=== PATIENT | female | born 1940 | race Caucasian/White ===

== ENCOUNTER 2018-03-05 09:34 | Emergency (ER) | payer MEDICARE ==
[~2018-03-05] VITALS: Ht 162.6 cm; Wt 74.8 kg
[~2018-03-05 09:34] MED LIST: CARDIZEM CD300 MG PO; GABAPENTIN300 MG PO; HYDROCHLOROTHIA25 MG PO; LEVOXYL25 MCG PO; NEXIUM40 MG PO; SIMVASTATIN20 MG PO
[2018-03-05] MEDS ORDERED: NEXIUM20 MG ORAL (10:14)
[2018-03-05] MEDS ORDERED: MELOXICAM15 MG PO (10:14)
[2018-03-05] MEDS ORDERED: FOSAMAX70 MG ORAL (10:14)
[2018-03-05] MEDS ORDERED: PRAVASTATIN SOD20 M1 ORAL (10:14)
[2018-03-05] MEDS ORDERED: Dicyclomine HCl 10mg/5ml oral soln ORAL ONE (10:15)
--- NOTE | 2018-03-05 10:31 | Emergency Room Report ---
History of Present Illness General Chief Complaint: Diarrhea Source: Patient Present Illness HPI 77-year-old female presents to ED for evaluation of diarrhea. Has had diarrhea for the last 4 days. Multiple loose watery stools. Notes cramping pain, 4 out of 10, nonradiating. Denies fevers or chills. Denies chest pain or shortness of breath. Denies nausea or vomiting. Denies recent antibiotic use. Denies recent travel. States that this happens to her occasionally and she may need IV hydration. Patient states she otherwise feels fine. Denies any weakness. No other aggravating relieving factors. Denies any other associated symptoms Allergies: Coded Allergies: CEPHALEXIN (Verified Allergy, Mild, 08/30/10) NITROFURANTOIN (Verified Allergy, Unknown, 03/05/18) POVIDONE-IODINE (Verified Allergy, Unknown, 03/05/18) SOAP (Verified Allergy, Unknown, 03/05/18) Uncoded Allergies: SHELLFISH (Allergy, Unknown, 03/05/18) Patient History Past Medical History: GERD, other - RA Past Surgical History: none Pertinent Family History: none Social History: Denies: smoking, alcohol use, drug use Now: No Immunizations: UTD Reviewed Nursing Documentation: PMH: Agreed; PSxH: Agreed Nursing Documentation-PMH Past Medical History: No Stated History Hx Hypertension: Yes - rheumatoid arthritis, chronic back pain Hx Gastrointestinal Problems: Yes - GERD Review of Systems All Other Systems: negative except mentioned in HPI Physical Exam Vital Signs Date Time Temp Pulse Resp B/P (MAP) Pulse Ox O2 Delivery O2 Flow Rate FiO2 03/05/18 09:44 97.5 68 18 150/97 98 Room Air 97.5 Sp02 EP Interpretation: reviewed, normal General Appearance: no apparent distress, alert, GCS 15, non-toxic Head: normocephalic, atraumatic Eyes: bilateral eye normal inspection, bilateral eye PERRL ENT: hearing grossly normal, normal pharynx, no angioedema, normal voice Neck: full range of motion, supple/symm/no masses Respiratory: chest non-tender, lungs clear, normal breath sounds, speaking full sentences Cardiovascular #1: regular rate, rhythm, no edema Cardiovascular #2: 2+ carotid (R), 2+ carotid (L), 2+ radial (R), 2+ radial (L) , 2+ dorsalis pedis (R), 2+ dorsalis pedis (L) Gastrointestinal: normal bowel sounds, non tender, soft, non-distended, no guarding, no rebound Rectal: deferred Genitourinary: normal inspection, no CVA tenderness Musculoskeletal: back normal, gait/station normal, normal range of motion, non- tender Neurologic: alert, oriented x3, responsive, motor strength/tone normal, sensory intact, speech normal Psychiatric: judgement/insight normal, memory normal, mood/affect normal, no suicidal/homicidal ideation Reflexes: 3+ bicep (R), 3+ bicep (L), 3+ tricep (R), 3+ tricep (L), 3+ knee (R) , 3+ knee (L) Skin: normal color, no rash, warm/dry, well hydrated Lymphatic: no adenopathy Medical Decision Making Diagnostic Impression: Primary Impression: Gastroenteritis ER Course Hospital Course 77 yo F presents to ED c/o diarrhea x 4 days differential diagnosis: gastritis, SBO, cholecystits, gastroenteritis Clinical course Patient placed on stretcher. On baggage agent. After initial history and physical I ordered labs, IV fluids, Bentyl Labs - no leukocytosis, electrolyte mariam, LFTs normal, UA + bacteria + squamous I discussed findings with the patient. Patient denies any dysuria symptoms. Denies any fevers or chills. Patient and daughter state she has extensive medication allergies it would prefer to hold off on antibiotics until culture comes back. Patient states she will either follow-up with culture results in a few days. I work on 03/09 and can follow up on culture results then as well I feel this is a highly complex case requiring extensive working including EKG/ Rhythm strip, Xray/CT/US, Blood/urine lab work, repeat exams while in ED, and administration of strong opiates/narcotics for pain control, admission to hospital or close patient follow up. Diagnosis - gastroenteritis Stable and discharged to home. f/u on urine cx. Followup with PMD. Return to ED if symptoms recur or worsen Labs Test 03/05/18 10:09 03/05/18 11:47 White Blood Count 5.8 K/UL (4.8-10.8) Red Blood Count 5.74 M/UL (4.20-5.40) Hemoglobin 16.3 G/DL (12.0-16.0) Hematocrit 47.8 % (37.0-47.0) Mean Corpuscular Volume 83 FL (80-99) Mean Corpuscular Hemoglobin 28.4 PG (27.0-31.0) Mean Corpuscular Hemoglobin Concent 34.2 G/DL (32.0-36.0) Red Cell Distribution Width 12.1 % (11.6-14.8) Platelet Count 198 K/UL (150-450) Mean Platelet Volume 9.3 FL (6.5-10.1) Neutrophils (%) (Auto) 78.1 % (45.0-75.0) Lymphocytes (%) (Auto) 12.6 % (20.0-45.0) Monocytes (%) (Auto) 9.0 % (1.0-10.0) Eosinophils (%) (Auto) 0.0 % (0.0-3.0) Basophils (%) (Auto) 0.4 % (0.0-2.0) Sodium Level 137 MMOL/L (136-145) Potassium Level 3.1 MMOL/L (3.5-5.1) Chloride Level 99 MMOL/L (98-107) Carbon Dioxide Level 27 MMOL/L (21-32) Anion Gap 11 mmol/L (5-15) Blood Urea Nitrogen 19 mg/dL (7-18) Creatinine 1.1 MG/DL (0.55-1.30) Estimat Glomerular Filtration Rate mL/min (>60) Glucose Level 104 MG/DL (74-106) Calcium Level 8.4 MG/DL (8.5-10.1) Total Bilirubin 0.8 MG/DL (0.2-1.0) Aspartate Amino Transf (AST/SGOT) 24 U/L (15-37) Alanine Aminotransferase (ALT/SGPT) 34 U/L (12-78) Alkaline Phosphatase 102 U/L (46-116) Total Protein 6.9 G/DL (6.4-8.2) Albumin 3.5 G/DL (3.4-5.0) Globulin 3.4 g/dL Albumin/Globulin Ratio 1.0 (1.0-2.7) Lipase 212 U/L (73-393) Urine Color Yellow Urine Appearance Slightly cloudy Urine pH 6 (4.5-8.0) Urine Specific [place] 1.010 (1.005-1.035) Urine Protein 1+ (NEGATIVE) Urine Glucose (UA) Negative (NEGATIVE) Urine Ketones 4+ (NEGATIVE) Urine Occult Blood 1+ (NEGATIVE) Urine Nitrite Positive (NEGATIVE) Urine Bilirubin Negative (NEGATIVE) Urine Urobilinogen 1 MG/DL (0.0-1.0) Urine Leukocyte Esterase 3+ (NEGATIVE) Urine RBC 2-4 /HPF (0 - 2) Urine WBC 30-40 /HPF (0 - 2) Urine Squamous Epithelial Cells Many /LPF (NONE/OCC) Urine Bacteria Many /HPF (NONE) Last Vital Signs Date Time Temp Pulse Resp B/P (MAP) Pulse Ox O2 Delivery O2 Flow Rate FiO2 03/05/18 09:44 97.5 68 18 150/97 98 Room Air 97.5 Status: improved Disposition: HOME, SELF-CARE Condition: Stable Taqueria Gregg MD Mar 05, 2018 10:31
[2018-03-05 10:49] LABS: BASOPHILS % (AUTO) 0.4 % (0.0-2.0); HEMATOCRIT 47.8 % (37.0-47.0); HEMOGLOBIN 16.3 G/DL (12.0-16.0); LYMPHOCYTES % (AUTO) 12.6 % (20.0-45.0); MEAN CORPUSCULAR VOLUME 83 FL (80-99); NEUTROPHILS % (AUTO) 78.1 % (45.0-75.0); PLATELET COUNT 198 K/UL (150-450); RED BLOOD COUNT 5.74 M/UL (4.20-5.40); RED CELL DISTRIBUTION WIDTH 12.1 % (11.6-14.8); WHITE BLOOD COUNT 5.8 K/UL (4.8-10.8)
[2018-03-05 11:20] LABS: ANION GAP 11 mmol/L (5-15); BLOOD UREA NITROGEN 19 mg/dL (7-18); CALCIUM 8.4 MG/DL (8.5-10.1); CARBON DIOXIDE 27 MMOL/L (21-32); CHLORIDE 99 MMOL/L (98-107); CREATININE 1.1 MG/DL (0.55-1.30); POTASSIUM 3.1 MMOL/L (3.5-5.1); SODIUM 137 MMOL/L (136-145)
[2018-03-05 11:24] LABS: ALANINE AMINOTRANSFERASE 34 U/L (12-78); ALBUMIN 3.5 G/DL (3.4-5.0); ALKALINE PHOSPHATASE 102 U/L (46-116); ASPARTATE AMINO TRANSFERASE 24 U/L (15-37); BILIRUBIN,TOTAL 0.8 MG/DL (0.2-1.0)
[2018-03-05 11:53] VITALS: BP 129/72
[2018-03-05 12:33] LABS: APPEARANCE,URINE SLIGHTLY CLOUDY; BILIRUBIN, URINE NEGATIVE (NEGATIVE); GLUCOSE, URINE (UA) NEGATIVE (NEGATIVE); KETONES,URINE 4+ (NEGATIVE); LEUKOCYTE ESTERASE ,URINE 3+ (NEGATIVE); NITRITE,URINE POSITIVE (NEGATIVE); PH,URINE 6 (4.5-8.0); PROTEIN,URINE 1+ (NEGATIVE); UROBILINOGEN,URINE 1 MG/DL (0.0-1.0)
[2018-03-05 12:49] LABS: COLOR,URINE YELLOW
[2018-03-05 13:47] VITALS: BP 129/72
== END 2018-03-05 13:48 | disposition home or self-care (01) ==
LOC: EMR 10:38
DX: K52.9 Noninfective gastroenteritis and colitis, unspecified (principal); K21.9 Gastro-esophageal reflux disease without esophagitis; I10 Essential (primary) hypertension; M06.9 Rheumatoid arthritis, unspecified; M54.9 Dorsalgia, unspecified; Z88.1 Allergy status to other antibiotic agents; Z91.013 Allergy to seafood; Z91.048 Other nonmedicinal substance allergy status
CPT/HCPCS: 36415; 80053; 81003; 83690; 85025; 87086; 87181; 96361; 96374; 99283; S0028; J8499